=== PATIENT | female | born 1955 | race African-American/Black ===

== ENCOUNTER 2022-11-07 05:18 | Day surgery (SDC) | payer OTHER ==
[2022-11-02 11:12] VITALS: BMI 29.1
[2022-11-07] MEDS ORDERED: MIDAZOLAM HCL 2 MG/2 ML SINGLE DOSE VIAL ONE ×2 (10:14→11:05)
[2022-11-07] MEDS ORDERED: ONDANSETRON 4 MG/2 ML VIAL ONE (10:14)
[2022-11-07 11:31] VITALS: RESP 20
[2022-11-07 12:34] VITALS: BP 108/65; PULSE 84; TEMP 97.3
== END 2022-11-07 12:30 | disposition home or self-care (01) ==
LOC: JASU-SURG 05:18
PROVIDERS: ATTEND Urology
PROC: 0TF3XZZ Fragmentation in Right Kidney Pelvis, External Approach (ICD-10-PCS; principal; 2022-11-07 10:00)
DX: N20.0 Calculus of kidney (principal)
CPT/HCPCS: 82962